=== PATIENT | female | born 1960 ===

== ENCOUNTER 2017-05-30 11:54 | Emergency (ER) | payer MEDICAID, MEDICARE, OTHER ==
[2017-05-30 11:55] VITALS: BMI 36.6
[2017-05-30 12:19] VITALS: TEMP 97.8
[2017-05-30] MEDS ORDERED: Albuterol-Ipratrop 3 mg / 0.5 (3 ml) UD IH STA (12:34)
--- NOTE | 2017-05-30 12:47 | ED PDOC ---
Arrival/HPI - General Chief Complaint: Cough, Cold, Congestion Time Seen by Provider: 05/30/17 12:18 Historian: Patient - History of Present Illness Narrative History of Present Illness (Text): 05/30/17 12:48 A 57 year old female, whose past medical history includes asthma, presents to the emergency department complaining of sinus congestion for the past 4 days. Patient has been taking nebulizer and allergy medications, with no relief. Patient reports she was traveling to [place], returned back home two days ago. Contrary to triage, patient denies pain with deep breaths. Reports chest tightness similar to her asthma exacerbating symptoms, a productive cough and sore throat but denies any fever, leg swelling or any other complaints at this time. Denies smoking. PMD: Dr. Chavira Symptom Onset: Sudden Symptom Course: Unchanged Activities at Onset: Rest Context: Home Past Medical History - Provider Review Nursing Documentation Reviewed: Yes - Infectious Disease Hx of Infectious Diseases: None - Tetanus Immunization Tetanus Immunization: Unknown - Reproductive Menopause: Yes - Cardiac Hx Cardiac Disorders: No - Pulmonary Hx Respiratory Disorders: Yes Hx Asthma: Yes - Neurological Hx Neurological Disorder: No - HEENT Hx HEENT Disorder: No - Renal Hx Renal Disorder: No - Endocrine/Metabolic Hx Endocrine Disorders: No - Hematological/Oncological Hx Blood Disorders: No - Integumentary Hx Dermatological Disorder: No - Musculoskeletal/Rheumatological Hx Musculoskeletal Disorders: Yes Hx Osteoporosis: Yes Hx Rheumatoid Arthritis: Yes - Gastrointestinal Hx Gastrointestinal Disorders: Yes Hx Gastroesophageal Reflux: Yes - Genitourinary/Gynecological Hx Genitourinary Disorders: No - Psychiatric Hx Psychophysiologic Disorder: No Hx Substance Use: No - Surgical History Hx Section: Yes (x3) Hx Cholecystectomy: Yes Other/Comment: b/ knee r/p. toe sx - Anesthesia Hx Anesthesia: Yes Hx Anesthesia Reactions: Yes (too much nausea) Hx Malignant Hyperthermia: No - Suicidal Assessment Feels Threatened In Home Enviroment: No Family/Social History - Physician Review Nursing Documentation Reviewed: Yes Family/Social History: No Known Family HX Smoking Status: Former Smoker Hx Alcohol Use: No Hx Substance Use: No Allergies/Home Meds Allergies/Adverse Reactions: Allergies codeine Allergy (Verified 05/30/17 12:09) ANAPHYLAXIS iodine Allergy (Verified 05/30/17 12:09) ANGIOEDEMA oxycodone HCl [From Percocet] Allergy (Verified 05/30/17 12:09) NAUSEA shellfish derived Allergy (Verified 05/30/17 12:09) ANAPHYLAXIS Home Medications: Home Meds Medication Instructions Recorded Confirmed Albuterol HFA [Ventolin HFA 90 2 puff IH PRN PRN 05/30/17 05/30/17 mcg/actuation (8 g)] Gabapentin [Neurontin] 100 mg PO DAILY 05/30/17 05/30/17 Gabapentin [Neurontin] 200 mg PO HS 05/30/17 05/30/17 Review of Systems - Physician Review All systems were reviewed & negative as marked: Yes - Review of Systems Constitutional: absent: Fevers ENT: Sore Throat, Sinus Congestion Respiratory: Cough Cardiovascular: Other (chest tightness). absent: Chest Pain Musculoskeletal: absent: Other (leg swelling) Physical Exam - Physical Exam Narrative Physical Exam (Text): 05/30/17 12:46 Head: Atraumatic. Normocephalic. Eyes: PERRL. EOMI. Conjunctivae are not pale. ENT: Mucous membranes are moist and intact. Oropharynx is clear and symmetric. Neck: Supple. Full ROM. No JVD. No lymphadenopathy. Cardiovascular: Regular rate. Regular rhythm. No murmurs, rubs, or gallops. Distal pulses are 2+ and symmetric. Pulmonary/Chest: Mild expiratory wheezing Abdominal: Soft and non-distended. There is no tenderness. No rebound, guarding, or rigidity. No organomegaly. Good bowel sounds. Back: No CVA tenderness. Extremities: No edema. No cyanosis. No clubbing. Full range of motion in all extremities. No calf tenderness. Skin: Skin is warm and dry. No petechiae. No purpura. Neurological: Alert, awake, and oriented to person, place, time, and situation. Normal speech. Psychiatric: Good eye contact. Normal interaction, affect, and behavior. Vital Signs Reviewed: Yes Vital Signs Temp Pulse Resp BP Pulse Ox 05/30/17 15:02 82 18 125/80 98 05/30/17 12:08 97.8 F 86 20 123/75 97 Temperature: Afebrile Blood Pressure: Normal Pulse: Regular Respiratory Rate: Normal Appearance: Positive for: Well-Appearing, Non-Toxic, Comfortable Pain Distress: None Mental Status: Positive for: Alert and Oriented X 3 Medical Decision Making ED Course and Treatment: 05/30/17 12:45 Impression: A 57 year old female with sinus congestion. Differential Diagnosis included but are not limited to: sinusitis vs. allergic rhinitis vs. asthma exacerbation vs. pneumonia Plan: -- EKG -- chest xray -- labs -- Duoneb, Solumedrol -- Reassess and disposition Prior Visits: Notes and results from previous visits were reviewed. Patient was last seen in the emergency department on 11/06/16 for evaluation of chest pain and right upper quadrant pain. Chest CT was negative for Pulmonary embolism. Progress Notes: 05/30/17 14:30 On reexamination, patient has no wheezing, no chest pain, no hypoxia. EKG reveals normal sinus rhythm with right bundle branch block, noted on EKG in October at [facility]. Will discharge patient with prednisone and antibiotics for possible sinusitis and mild asthma exacerbation. 05/30/17 14:59 chest xray: Creator : Stanley Caba MD IMPRESSION: No active disease. - Lab Interpretations Lab Results: 05/30/17 13:26 05/30/17 13:26 Lab Results 05/30/17 13:26: Sodium 142, Potassium 3.8, Chloride 103, Carbon Dioxide 28, Anion Gap 15, BUN 13, Creatinine 0.7, Est GFR ( Amer) > 60, Est GFR (Non- Af Amer) > 60, Random Glucose 96, Calcium 9.1, Total Bilirubin 0.3, AST 25, ALT 27, Alkaline Phosphatase 74, Lactate Dehydrogenase 499, Total Creatine Kinase 117, Troponin I < 0.01, Total Protein 6.8, Albumin 4.2, Globulin 2.6, Albumin/ Globulin Ratio 1.6 05/30/17 13:26: PT 10.7, INR 0.99, APTT 27.1 05/30/17 13:26: WBC 5.4, RBC 4.54, Hgb 13.0, Hct 39.6, MCV 87.2, MCH 28.6, MCHC 32.8, RDW 13.3, Plt Count 259, MPV 10.3, Gran % 55.1, Lymph % (Auto) 32.7, [place] % (Auto) 8.3 H, Eos % (Auto) 3.3, Baso % (Auto) 0.6, Gran # 3.00, Lymph # 1.8, [place] # 0.5, Eos # 0.2, Baso # 0.03 I have reviewed the lab results: Yes - RAD Interpretation Radiology Orders: 05/30/17 12:33 CHEST TWO VIEWS (PA/LAT) [RAD] Stat - EKG Interpretation Interpreted by ED Physician: Yes Type: 12 lead EKG - Medication Orders Current Medication Orders: Discontinued Medications Albuterol/Ipratropium (Duoneb 3 Mg/0.5 Mg (3 Ml) Ud) 3 ml IH STAT STA Stop: 05/30/17 12:35 Last Admin: 05/30/17 13:12 Dose: 3 ml Methylprednisolone (Solu-Medrol) 125 mg IVP STAT STA Stop: 05/30/17 12:35 Last Admin: 05/30/17 13:12 Dose: 125 mg - Scribe Statement The provider has reviewed the documentation as recorded by the Taiwo Davis Provider Scribe Attestation: All medical record entries made by the Scribe were at my direction and personally dictated by me. I have reviewed the chart and agree that the record accurately reflects my personal performance of the history, physical exam, medical decision making, and the department course for this patient. I have also personally directed, reviewed, and agree with the discharge instructions and disposition. Disposition/Present on Arrival - Present on Arrival History of DVT/PE: Yes History of Uncontrolled Diabetes: No Urinary Catheter: No History of Decub. Ulcer: No History Surgical Site Infection Following: None - Disposition Diagnosis: Sinusitis, Asthma exacerbation Disposition: HOME/ ROUTINE Condition: GOOD Discharge Instructions (ExitCare): Asthma (ED), Sinusitis (ED), Allergies (ED) Additional Instructions: For any fevers, any facial swelling, any headaches, any chest pain or shortness of breath, any pain with deep breaths, any leg or swelling, any coughing/ spitting blood, any persistent or worsening of symptoms, get rechecked. Follow-up with your primary care doctor in 1-2 days. Prescriptions: predniSONE [Prednisone] 60 mg PO DAILY #15 tab Azithromycin [Zithromax] 250 mg PO DAILY #6 tab Referrals: Brendan Chavira MD [Primary Care Provider] - Follow up with primary Forms: [employer] (Ukrainian)
[2017-05-30 13:35] LABS: BASO # 0.03 K/mm3 (0.0-2.0); BASO % 0.6 % (0.0-3.0); EOS # 0.2 (0.0-0.7); EOS % 3.3 % (1.5-5.0); GRAN % 55.1 % (50.0-68.0); LYMPH # 1.8 (1.2-3.4); LYMPH % 32.7 % (22.0-35.0); MEAN CELL VOLUME 87.2 fl (80.0-105.0); MEAN CORPUSCULAR HEMOGLOBIN 28.6 pg (25.0-35.0); MEAN CORPUSCULAR HGB CONC 32.8 g/dl (31.0-37.0); MEAN PLATELET VOLUME 10.3 fl (7.0-11.0); MONO # 0.5 (0.1-0.6); MONO % 8.3 % (1.0-6.0); PLATELET COUNT 259 10^3/uL (120.0-450.0); RBC 4.54 10^6/uL (3.5-6.1); RED CELL DISTRIBUTION WIDTH 13.3 % (11.5-14.5); WHITE BLOOD COUNT 5.4 10^3/ul (4.5-11.0)
[2017-05-30 13:40] LABS: ALB/GLOB RATIO 1.6 (1.1-1.8); ALBUMIN 4.2 g/dL (3.0-4.8); ALT/SGPT 27 U/L (7-56); AST/SGOT 25 U/L (15-39); BLOOD UREA NITROGEN 13 mg/dL (7-21); CALCIUM 9.1 mg/dL (8.4-10.5); GFR AFRICAN-AMERICAN > 60; GFR NON-AFRICAN AMERICAN > 60
[2017-05-30 13:41] LABS: INR 0.99 (0.93-1.08); PARTIAL THROMBOPLASTIN TIME 27.1 Seconds (23.7-30.8); PROTHROMBIN TIME 10.7 Seconds (9.9-11.8)
[2017-05-30 13:53] LABS: TROPONIN I < 0.01 ng/mL
--- NOTE | 2017-05-30 14:57 | RAD ---
HISTORY: cough, productive sputum COMPARISON: No prior. TECHNIQUE: Chest PA and lateral FINDINGS: LUNGS: No active pulmonary disease. PLEURA: No significant pleural effusion identified. No pneumothorax apparent. CARDIOVASCULAR: Normal. OSSEOUS STRUCTURES: No significant abnormalities. VISUALIZED UPPER ABDOMEN: Normal. OTHER FINDINGS: None. IMPRESSION: No active disease.
[2017-05-30 15:04] VITALS: BP 125/80; PULSE 82; RESP 18; O2SAT 98
--- NOTE | 2017-05-30 23:29 | CARD ---
APPROVED REPORT EKG Measurement Heart [id number] <Conclusion> Normal sinus rhythm Right bundle branch block Voltage criteria for left ventricular hypertrophy Abnormal ECG
== END 2017-05-30 15:04 | disposition home or self-care (01) ==
LOC: ED 11:54
DX: J45.901 Unspecified asthma with (acute) exacerbation (principal); J32.9 Chronic sinusitis, unspecified; Z87.891 Personal history of nicotine dependence
CPT/HCPCS: 71020; 80053; 82550; 83615; 84484; 85025; 85610; 85730; 93005; 94150; 94640; 96374; 99285; J2930

== ENCOUNTER 2017-07-28 11:30 | Emergency (ER) | payer MEDICARE ==
[2017-07-28 11:30] VITALS: BMI 37.8
[2017-07-28 11:35] VITALS: TEMP 97.7
[2017-07-28] MEDS ORDERED: Levalbuterol 1.25 MG/3 ML Inhal Soln UD IH STA ×2 (11:41→11:50)
[2017-07-28] MEDS ORDERED: Ipratropium 0.02% Inhal Soln (0.5 mg/2.5 ml) UD IH STA ×2 (11:41→11:50)
[2017-07-28] MEDS ORDERED: Sodium Chloride 0.9% 1,000 ML IV SCH (11:45)
--- NOTE | 2017-07-28 11:46 | ED PDOC ---
Arrival/HPI - General Chief Complaint: Shortness Of Breath Time Seen by Provider: 07/28/17 11:32 Historian: Patient - History of Present Illness Narrative History of Present Illness (Text): 07/28/17 11:44 57 y/o female, pmh including osteoporosis/asthma/PE?, allergic to narcotics and shellfish, c/o coughing and wheezing x 1 week. Pt. stated that she has chronic history of asthma, started with coughing and wheezing last week, no fever or chills, no recent traveling, no night sweat, no numbness or tingling, no night sweat, no other medical or psychological complaints. Past Medical History - Provider Review Nursing Documentation Reviewed: Yes - Infectious Disease Hx of Infectious Diseases: None - Tetanus Immunization Tetanus Immunization: Unknown - Cardiac Hx Cardiac Disorders: No - Pulmonary Hx Respiratory Disorders: Yes Hx Asthma: Yes Hx Tuberculosis: Yes - Neurological Hx Neurological Disorder: No - HEENT Hx HEENT Disorder: No - Renal Hx Renal Disorder: No - Endocrine/Metabolic Hx Endocrine Disorders: No - Hematological/Oncological Hx Blood Disorders: No - Integumentary Hx Dermatological Disorder: No - Musculoskeletal/Rheumatological Hx Musculoskeletal Disorders: Yes (FIBROMYALGIA) Hx Arthritis: Yes - Gastrointestinal Hx Gastrointestinal Disorders: Yes (APPLICATION AND REMOVAL OF LAP BAND) - Genitourinary/Gynecological Hx Genitourinary Disorders: No - Psychiatric Hx Psychophysiologic Disorder: No Hx Substance Use: No - Surgical History Hx Cholecystectomy: Yes Hx Orthopedic Surgery: Yes (SARAH KNEE REPLACEMENT) Other/Comment: SARAH FEET TOE SX, BUNIONECTOMY - Anesthesia Hx Anesthesia: Yes Hx Anesthesia Reactions: No (NEEDS ANTIEMETIC PRIOR TO ANESTHESIA) Hx Malignant Hyperthermia: No - Suicidal Assessment Feels Threatened In Home Enviroment: No Family/Social History - Physician Review Nursing Documentation Reviewed: Yes Family/Social History: Unknown Family HX Smoking Status: Former Smoker Hx Alcohol Use: No Hx Substance Use: No Allergies/Home Meds Allergies/Adverse Reactions: Allergies codeine Allergy (Verified 07/28/17 11:35) ANAPHYLAXIS iodine Allergy (Verified 07/28/17 11:35) ANGIOEDEMA oxycodone HCl [From Percocet] Allergy (Verified 07/28/17 11:35) NAUSEA shellfish derived Allergy (Verified 07/28/17 11:35) ANAPHYLAXIS Home Medications: Home Meds Medication Instructions Recorded Confirmed Gabapentin [Neurontin] 300 mg PO TID 05/30/17 07/28/17 Alendronate [Fosamax] 1 tab PO DAILY 07/09/17 07/28/17 Mometasone/Formoterol [Dulera 200 1 puff INH DAILY 07/09/17 07/28/17 Mcg/5 Mcg Inhaler] Metronidazole [Flagyl] 500 mg PO BID 07/28/17 07/28/17 Pantoprazole Sodium [Protonix] 40 mg PO DAILY 07/28/17 07/28/17 Review of Systems - Review of Systems Constitutional: absent: Fatigue, Fevers Eyes: absent: Vision Changes ENT: absent: Hearing Changes Respiratory: Cough, Sputum, Wheezing. absent: SOB Cardiovascular: absent: Chest Pain Gastrointestinal: absent: Abdominal Pain, Nausea, Vomiting Skin: absent: Rash, Pruritis Neurological: absent: Headache, Dizziness Physical Exam Vital Signs Reviewed: Yes Vital Signs Temp Pulse Resp BP Pulse Ox 07/28/17 13:35 98 H 22 120/63 98 07/28/17 12:10 80 20 116/67 98 07/28/17 12:09 28 H 100 07/28/17 11:34 97.7 F 101 H 22 132/81 100 Temperature: Afebrile Blood Pressure: Normal Pulse: Tachycardic Respiratory Rate: Normal Appearance: Positive for: Well-Appearing, Non-Toxic Pain Distress: None Mental Status: Positive for: Alert and Oriented X 3 - Systems Exam Head: Present: Atraumatic, Normocephalic Pupils: Present: PERRL Extroacular Muscles: Present: EOMI Conjunctiva: Present: Normal Mouth: Present: Moist Mucous Membranes Neck: Present: Normal Range of Motion Respiratory/Chest: Present: Clear to Auscultation, Good Air Exchange, Wheezes ( Bilateral mid to lower lobes. ), Decreased Breath Sounds (Bilateral mid to lower lobes. ), Tachypneic. No: Respiratory Distress, Accessory Muscle Use, Rales, Retracting, Rhonchi, Tender to Palpation Cardiovascular: Present: Regular Rate and Rhythm, Normal S1, S2, Other (1+ pedal edema bilaterally noted. ). No: Murmurs Abdomen: Present: Normal Bowel Sounds. No: Tenderness, Distention, Peritoneal Signs Back: Present: Normal Inspection Upper Extremity: Present: Normal Inspection. No: Cyanosis, Edema Lower Extremity: Present: Normal Inspection. No: Edema Neurological: Present: GCS=15, Speech Normal, Motor Func Grossly Intact, Gait Normal, Memory Normal Skin: Present: Warm, Dry, Normal Color. No: Rashes Psychiatric: Present: Alert, Oriented x 3, Normal Insight, Normal Concentration Medical Decision Making ED Course and Treatment: 07/28/17 11:46 -labs/bnp -chest xray -IV solumedrol/xopenex with ipratropium/IVF NS @ 100cc/hr -Observe and reassess 07/28/17 13:17 -Chest xray show no active disease -After the 1st xopenex and ipratropium treatment, there is increase in breath sound and decrease in wheezing, will continue the 2nd treatment. -Labs are non-significant except d-dimer 0.53,CTA ordered. Pt. stated that she is clostrophobic, 1mg IV ativan ordered and will be given prior to the CTA. -Pt. has shellfish allergy but she had the IV contrast before with no complication, received the IV steroid already, will prophylatically give 25mg IV benadryl. 07/28/17 14:54 -CTA show no PE. -Bilateral lung with clear entry, wheezing mostly resolved, pt. feels much better. -Discharge home with zithromycin, prednisone, albuterol MDI, zyrtec, stay hydrated, follow up with your own pmd and plant culture manager within 2 days, return to the ER for any new or worsening signs or symptoms. - Lab Interpretations Lab Results: 07/28/17 11:48 07/28/17 11:48 Lab Results 07/28/17 11:48: D-Dimer, Quantitative 0.53 H 07/28/17 11:48: WBC 5.5, RBC 4.54, Hgb 12.7, Hct 39.6, MCV 87.2, MCH 28.0, MCHC 32.1, RDW 13.7, Plt Count 262, MPV 10.0, Gran % 62.8, Lymph % (Auto) 24.9, [place] % (Auto) 6.8 H, Eos % (Auto) 5.1 H, Baso % (Auto) 0.4, Gran # 3.44, Lymph # 1.4 , [place] # 0.4, Eos # 0.3, Baso # 0.02 07/28/17 11:48: Sodium 141, Potassium 3.8, Chloride 105, Carbon Dioxide 26, Anion Gap 14, BUN 14, Creatinine 0.7, Est GFR ( Amer) > 60, Est GFR (Non- Af Amer) > 60, Random Glucose 192 H, Calcium 9.0, Total Bilirubin 0.4, AST 25, ALT 30, Alkaline Phosphatase 74, NT-Pro-B Natriuret Pep 72.8, Total Protein 6.9 , Albumin 4.1, Globulin 2.8, Albumin/Globulin Ratio 1.5 I have reviewed the lab results: Yes Interpretation: Abnormal lab values (d-dimer 0.53) - RAD Interpretation Radiology Orders: 07/28/17 11:41 CHEST PORTABLE [RAD] Stat 07/28/17 13:13 ANGIO CHEST PE PROTOCOL [CT] Stat Chest x-ray: HISTORY: medical clearance COMPARISON: 05/30/2017 FINDINGS: LUNGS: The lungs are well inflated and clear. PLEURA: No significant pleural effusion identified, no pneumothorax apparent. CARDIOVASCULAR: Normal. OSSEOUS STRUCTURES: No significant abnormalities. VISUALIZED UPPER ABDOMEN: Normal. OTHER FINDINGS: None. IMPRESSION: No active pulmonary disease. ------ CTA: PROCEDURE: CT Chest with contrast (Pulmonary Angiogram) HISTORY: cough and wheezing, elevated d-dimer COMPARISON: Chest radiographs performed the same day. TECHNIQUE: Axial computed tomography images were obtained of the chest in the pulmonary arterial phase of enhancement. Coronal and sagittal reformatted images were created and reviewed. Intravenous contrast dose: Radiation dose: Total exam DLP = 692.57 mGy-cm. This CT exam was performed using one or more of the following dose reduction techniques: Automated exposure control, adjustment of the mA and/or kV according to patient size, and/or use of iterative reconstruction technique. FINDINGS: PULMONARY ARTERIES: There are no filling defects in the pulmonary arteries to suggest acute pulmonary embolism. AORTA: No thoracic aortic aneurysm. LUNGS: The lungs are clear. No nodule, mass or pulmonary consolidation. PLEURAL SPACES: No effusion or pneuomothorax. HEART: The heart is normal in size. No significant pericardial effusion. LYMPH NODES: No pathologic lymphadenopathy. BONES, CHEST WALL: There is multilevel degenerative disc disease. No fracture or destructive lesion OTHER FINDINGS: None IMPRESSION: No evidence of acute pulmonary embolism. Clear lungs. Flower Cheniller: Radiologist - Medication Orders Current Medication Orders: Sodium Chloride (Sodium Chloride 0.9%) 1,000 mls @ 100 mls/hr IV .Q10H [place] Last Admin: 07/28/17 11:47 Dose: 100 mls/hr eMAR Start Stop Document 07/28/17 11:47 [place] (Rec: 07/28/17 11:47 [id number] Intravenous Solution Start Date 07/28/17 Start Time 11:47 Discontinued Medications Diphenhydramine HCl (Benadryl) 25 mg IVP STAT STA Stop: 07/28/17 13:14 Last Admin: 07/28/17 13:40 Dose: 25 mg IVP Administration Document 07/28/17 13:40 [place] (Rec: 07/28/17 13:40 [id number]) Charges for Administration # of IVP Administrations 1 Ipratropium [place] (Atrovent) 0.5 mg IH STAT STA Stop: 07/28/17 11:42 Last Admin: 07/28/17 11:47 Dose: 0.5 mg Ipratropium [place] (Atrovent) 0.5 mg IH STAT STA Stop: 07/28/17 11:51 Last Admin: 07/28/17 12:29 Dose: 0.5 mg Levalbuterol HCl (Xopenex) 1.25 mg IH STAT STA Stop: 07/28/17 11:42 Last Admin: 07/28/17 11:53 Dose: 1.25 mg Levalbuterol HCl (Xopenex) 1.25 mg IH STAT STA Stop: 07/28/17 11:51 Last Admin: 07/28/17 12:29 Dose: 1.25 mg Lorazepam (Ativan) 1 mg IVP ONCE ONE PRN Reason: Protocol Stop: 07/28/17 13:14 Last Admin: 07/28/17 13:41 Dose: 1 mg IVP Administration Document 07/28/17 13:41 [place] (Rec: 07/28/17 13:41 [id number]) Charges for Administration # of IVP Administrations 1 Methylprednisolone (Solu-Medrol) 125 mg IVP STAT STA Stop: 07/28/17 11:42 Last Admin: 07/28/17 11:47 Dose: 125 mg IVP Administration Document 07/28/17 11:47 [place] (Rec: 07/28/17 11:47 [id number] Charges for Administration # of IVP Administrations 1 - PA / BUMBOATER / Resident Statement MD/DO has reviewed & agrees with the documentation as recorded. MD/DO has examined the patient and agrees with the treatment plan. Disposition/Present on Arrival - Present on Arrival Any Indicators Present on Arrival: No History of DVT/PE: Yes History of Uncontrolled Diabetes: No Urinary Catheter: No History of Decub. Ulcer: No History Surgical Site Infection Following: None - Disposition Have Diagnosis and Disposition been Completed?: Yes Diagnosis: Asthma, Bronchitis Disposition: HOME/ ROUTINE Disposition Time: 14:54 Patient Plan: Discharge Patient Problems: Current Active Problems Problem Status Onset Asthma Acute Condition: IMPROVED Additional Instructions: -Discharge home with zithromycin, prednisone, albuterol MDI, zyrtec, stay hydrated, follow up with your own pmd and plant culture manager within 2 days, return to the ER for any new or worsening signs or symptoms. Prescriptions: Albuterol HFA [Ventolin HFA 90 mcg/actuation (8 g)] 2 puff IH [id number] PRN #1 unit PRN Reason: Other Azithromycin [Z-John] 250 mg PO DAILY #6 tab Cetirizine HCl [Zyrtec Allergy] 10 mg PO DAILY #14 sgl Prednisone 50 mg PO DAILY #5 tablet Referrals: PCP,NO [Primary Care Provider] - Follow up with primary [facility] [place] - Follow up with primary Forms: [employer] (French), WORK NOTE
[2017-07-28 11:58] LABS: BASO # 0.02 K/mm3 (0.0-2.0); BASO % 0.4 % (0.0-3.0); EOS # 0.3 (0.0-0.7); EOS % 5.1 % (1.5-5.0); GRAN # 3.44 (1.4-6.5); GRAN % 62.8 % (50.0-68.0); HEMATOCRIT 39.6 % (36.0-48.0); LYMPH # 1.4 (1.2-3.4); LYMPH % 24.9 % (22.0-35.0); MEAN CELL VOLUME 87.2 fl (80.0-105.0); MEAN CORPUSCULAR HGB CONC 32.1 g/dl (31.0-37.0); MONO # 0.4 (0.1-0.6); MONO % 6.8 % (1.0-6.0); RED CELL DISTRIBUTION WIDTH 13.7 % (11.5-14.5); WHITE BLOOD COUNT 5.5 10^3/ul (4.5-11.0)
[2017-07-28 12:08] LABS: ALB/GLOB RATIO 1.5 (1.1-1.8); ALKALINE PHOSPHATASE 74 U/L (38-126); ALT/SGPT 30 U/L (7-56); AST/SGOT 25 U/L (14-36); BILIRUBIN,TOTAL 0.4 mg/dL (0.2-1.3); BLOOD UREA NITROGEN 14 mg/dL (7-21); CARBON DIOXIDE 26 mmol/L (21-33); CHLORIDE 105 mmol/L (98-107); GFR AFRICAN-AMERICAN > 60; GLUCOSE,RANDOM 192 mg/dL (70-110); POTASSIUM 3.8 mmol/L (3.6-5.0); SODIUM 141 mmol/L (132-148); TOTAL PROTEIN 6.9 g/dL (5.8-8.3)
--- NOTE | 2017-07-28 12:16 | RAD ---
HISTORY: medical clearance COMPARISON: 05/30/2017 FINDINGS: LUNGS: The lungs are well inflated and clear. PLEURA: No significant pleural effusion identified, no pneumothorax apparent. CARDIOVASCULAR: Normal. OSSEOUS STRUCTURES: No significant abnormalities. VISUALIZED UPPER ABDOMEN: Normal. OTHER FINDINGS: None. IMPRESSION: No active pulmonary disease.
[2017-07-28] MEDS ORDERED: DiphenhydrAMINE 50 mg/ml Inj IVP STA (13:13)
[2017-07-28 13:36] VITALS: O2SAT 98
--- NOTE | 2017-07-28 14:50 | CT ---
PROCEDURE: CT Chest with contrast (Pulmonary Angiogram) HISTORY: cough and wheezing, elevated d-dimer COMPARISON: Chest radiographs performed the same day. TECHNIQUE: Axial computed tomography images were obtained of the chest in the pulmonary arterial phase of enhancement. Coronal and sagittal reformatted images were created and reviewed. Intravenous contrast dose: Radiation dose: Total exam DLP = 692.57 mGy-cm. This CT exam was performed using one or more of the following dose reduction techniques: Automated exposure control, adjustment of the mA and/or kV according to patient size, and/or use of iterative reconstruction technique. FINDINGS: PULMONARY ARTERIES: There are no filling defects in the pulmonary arteries to suggest acute pulmonary embolism. AORTA: No thoracic aortic aneurysm. LUNGS: The lungs are clear. No nodule, mass or pulmonary consolidation. PLEURAL SPACES: No effusion or pneuomothorax. HEART: The heart is normal in size. No significant pericardial effusion. LYMPH NODES: No pathologic lymphadenopathy. BONES, CHEST WALL: There is multilevel degenerative disc disease. No fracture or destructive lesion OTHER FINDINGS: None IMPRESSION: No evidence of acute pulmonary embolism. Clear lungs.
[2017-07-28 14:57] VITALS: BP 127/68; PULSE 92; RESP 18
== END 2017-07-28 15:15 | disposition home or self-care (01) ==
LOC: ED 11:30
DX: J45.909 Unspecified asthma, uncomplicated (principal); Z86.11 Personal history of tuberculosis; Z87.891 Personal history of nicotine dependence
CPT/HCPCS: 71010; 71275; 80053; 83880; 85025; 85378; 96374; 96375; 99284; J1200; J2060; J2930; J7040; Q9967

== ENCOUNTER 2018-11-26 11:58 | Observation (INO) | payer MEDICARE, OTHER ==
[2018-11-26 12:04] VITALS: BMI 44.6
--- NOTE | 2018-11-26 12:10 | ED PDOC ---
Arrival/HPI - General Time Seen by Provider: 11/26/18 12:00 Historian: Patient - History of Present Illness Narrative History of Present Illness (Text): 11/26/18 12:09 58 year old female, whose past medical history includes Asthma, tuberculosis, GERD, cholecystectomy, gastric bypass, and joint replacement (LT TKR 2007; RT TKR 2008), who presents to the emergency department complaining of asthmatic symptoms for the past day. Patient notes she is experiencing shortness of breath and chest tightness that feel similar to her asthma. She described the chest tightness as a 6/10. Patient states she has been using her nebulizer treatments and pumps with no relief. She notes associated wheezing, chills, abdominal pain, and scratchy throat. Patient denies fevers, headache, dizziness, nausea, vomiting, diarrhea, back pain, neck pain, or any other complaint. PMD: Dr. Rizvi Time/Duration: 24 hours Symptom Onset: Gradual Symptom Course: Unchanged Quality: Tightness Activities at Onset: Light Context: Home Past Medical History - Provider Review Nursing Documentation Reviewed: Yes - Infectious Disease Hx of Infectious Diseases: None - Tetanus Immunization Tetanus Immunization: Unknown - Cardiac Hx Cardiac Disorders: No - Pulmonary Hx Respiratory Disorders: Yes Hx Asthma: Yes Hx Tuberculosis: Yes - Neurological Hx Neurological Disorder: Yes - HEENT Hx HEENT Disorder: No - Renal Hx Renal Disorder: No - Endocrine/Metabolic Hx Endocrine Disorders: No - Hematological/Oncological Hx Blood Disorders: No - Integumentary Hx Dermatological Disorder: No - Musculoskeletal/Rheumatological Hx Falls: No - Gastrointestinal Hx Gastrointestinal Disorders: Yes Hx Gastroesophageal Reflux: Yes - Genitourinary/Gynecological Hx Genitourinary Disorders: No - Psychiatric Hx Psychophysiologic Disorder: No Hx Substance Use: No - Surgical History Hx Cholecystectomy: Yes Hx Gastric Bypass Surgery: Yes (lap band 5 yrs ago) Hx Joint Replacement: Yes (LT TKR 2007; RT TKR 2008) Hx Musculoskeletal Surgery: Yes (LAMINECTOMY 06/2014) Hx Orthopedic Surgery: Yes Other/Comment: SARAH FEET TOE SX, BUNIONECTOMY - Anesthesia Hx Anesthesia: Yes Hx Anesthesia Reactions: No Hx Malignant Hyperthermia: No - Suicidal Assessment Feels Threatened In Home Enviroment: No Family/Social History - Physician Review Nursing Documentation Reviewed: Yes Family/Social History: No Known Family HX Smoking Status: Former Smoker Hx Alcohol Use: No Hx Substance Use: No Allergies/Home Meds Allergies/Adverse Reactions: Allergies codeine Allergy (Verified 07/28/17 11:35) ANAPHYLAXIS iodine Allergy (Verified 07/28/17 11:35) ANGIOEDEMA oxycodone HCl [From Percocet] Allergy (Verified 07/28/17 11:35) NAUSEA shellfish derived Allergy (Verified 07/28/17 11:35) ANAPHYLAXIS Home Medications: Home Meds Medication Instructions Recorded Confirmed RX: Gabapentin [Neurontin] 300 mg PO TID 05/30/17 11/28/17 Mometasone/Formoterol [Dulera 200 1 puff INH DAILY 07/09/17 11/28/17 Mcg/5 Mcg Inhaler] RX: Alendronate [Fosamax] 1 tab PO DAILY 07/09/17 11/20/17 Pantoprazole Sodium [Protonix] 40 mg PO DAILY 07/28/17 11/28/17 Review of Systems - Review of Systems Constitutional: absent: Fevers Eyes: absent: Vision Changes ENT: Sore Throat Respiratory: SOB, Wheezing. absent: Cough Cardiovascular: Chest Pain (tightness) Gastrointestinal: absent: Abdominal Pain, Constipation, Diarrhea, Nausea, Vomiting Genitourinary Female: absent: Dysuria, Frequency Musculoskeletal: absent: Back Pain, Neck Pain Skin: absent: Rash Neurological: absent: Headache, Dizziness Physical Exam Vital Signs Reviewed: Yes Temperature: Afebrile Blood Pressure: Hypertensive Pulse: Tachycardic Respiratory Rate: Tachypneic Appearance: Positive for: Well-Appearing, Non-Toxic, Comfortable Pain Distress: None Mental Status: Positive for: Alert and Oriented X 3 - Systems Exam Head: Present: Atraumatic, Normocephalic Pupils: Present: PERRL Extroacular Muscles: Present: EOMI Conjunctiva: Present: Normal Mouth: Present: Moist Mucous Membranes Pharnyx: Present: ERYTHEMA. No: EXUDATE, TONSILS ENLARGED, Peritonsilar Swelling Neck: Present: Normal Range of Motion Respiratory/Chest: Present: Wheezes, Decreased Breath Sounds. No: Respiratory Distress, Accessory Muscle Use Cardiovascular: Present: Regular Rate and Rhythm, Normal S1, S2. No: Murmurs Abdomen: No: Tenderness, Distention, Peritoneal Signs Back: Present: Normal Inspection Upper Extremity: Present: Normal Inspection. No: Cyanosis, Edema Lower Extremity: Present: Normal Inspection. No: Edema Neurological: Present: GCS=15, CN II-XII Intact, Speech Normal Skin: Present: Warm, Dry, Normal Color. No: Rashes Lymphatic: No: Cervical Adenopathy, Axillary Adenopathy, Inguinal Adenopathy Psychiatric: Present: Alert, Oriented x 3, Normal Insight, Normal Concentration Medical Decision Making ED Course and Treatment: 11/26/18 12:09 Impression: 58 year old female who presents to the emergency department complaining of asthmatic symptoms. Plan: -- EKG -- Chest X-ray -- Albuterol -- Duoneb -- Peak flow -- Reassess and disposition Prior Visits: Notes and results from previous visits were reviewed. Progress Notes: 11/26/18 12:52 EKG shows NSR at 80bpm with RBBB and LVH, unchanged from prior on 07/0711/26/18 12:56 Chest X-ray reviewed by radiologist, shows: IMPRESSION: No active pulmonary disease. 11/26/18 14:09 Peak flow 230 to 370 after duonebs, albuterol and steroids. Tachypneic after ambulating around with persistent wheezing. She reports no improvement of symptoms. Accepted by dr. rizvi - EKG Interpretation Interpreted by ED Physician: Yes Type: 12 lead EKG - Scribe Statement The provider has reviewed the documentation as recorded by the Taiwo Jeter Provider Scribe Attestation: All medical record entries made by the Scribe were at my direction and personally dictated by me. I have reviewed the chart and agree that the record accurately reflects my personal performance of the history, physical exam, medical decision making, and the department course for this patient. I have also personally directed, reviewed, and agree with the discharge instructions and disposition. Disposition/Present on Arrival - Present on Arrival Any Indicators Present on Arrival: No History of DVT/PE: No History of Uncontrolled Diabetes: No Urinary Catheter: No History Surgical Site Infection Following: None - Disposition Have Diagnosis and Disposition been Completed?: Yes Diagnosis: Asthma exacerbation Disposition: HOSPITALIZED Disposition Time: 14:18 Patient Plan: Observation Condition: FAIR
[2018-11-26] MEDS ORDERED: Albuterol 0.5% Inhal Sol (5 mg/ ml) 20 ml IH STA (12:29)
[2018-11-26] MEDS: Albuterol-Ipratrop 3 mg / 0.5 (3 ml) UD IH SCH ×4 (12:32→19:44)
--- NOTE | 2018-11-26 12:53 | RAD ---
Date of service: 11/26/2018 HISTORY: asthma, sob COMPARISON: 07/07/2018. FINDINGS: LUNGS: The lungs are well inflated and clear. PLEURA: No pleural effusions or pneumothorax. CARDIOVASCULAR: The heart is normal in size. No aortic atherosclerotic calcifications present. OSSEOUS STRUCTURES: Within normal limits for the patient's age. VISUALIZED UPPER ABDOMEN: Normal. OTHER FINDINGS: None. IMPRESSION: No active pulmonary disease.
[2018-11-26] MEDS ORDERED: Albuterol 0.083% Inhal Sol (2.5 mg/3 mL) UD ONE (13:34)
[2018-11-26] MEDS ORDERED: Albuterol-Ipratrop 3 mg / 0.5 (3 ml) UD IH STA ×2 (14:09→15:56)
[2018-11-26 15:01] LABS: BASO # 0.01 K/mm3 (0.0-2.0); BASO % 0.1 % (0.0-3.0); EOS # 0.1 (0.0-0.7); EOS % 0.8 % (1.5-5.0); HEMOGLOBIN 12.7 g/dL (12.0-16.0); LYMPH # 1.4 (1.2-3.4); LYMPH % 18.7 % (22.0-35.0); MEAN CELL VOLUME 87.1 fl (80.0-105.0); MEAN CORPUSCULAR HEMOGLOBIN 27.3 pg (25.0-35.0); MEAN CORPUSCULAR HGB CONC 31.3 g/dl (31.0-37.0); MEAN PLATELET VOLUME 10.7 fl (7.0-11.0); MONO # 0.3 (0.1-0.6); MONO % 3.7 % (1.0-6.0); RBC 4.66 10^6/uL (3.5-6.1); RED CELL DISTRIBUTION WIDTH 14.2 % (11.5-14.5); WHITE BLOOD COUNT 7.5 10^3/uL (4.5-11.0)
[2018-11-26 15:13] LABS: ALB/GLOB RATIO 1.4 (1.1-1.8); ALBUMIN 4.3 g/dL (3.0-4.8); BLOOD UREA NITROGEN 15 mg/dL (7-21); CALCIUM 9.2 mg/dL (8.4-10.5); GFR NON-AFRICAN AMERICAN > 60
[2018-11-26 15:18] LABS: ALT/SGPT 24 U/L (7-56); AST/SGOT 35 U/L (14-36)
[2018-11-26] MEDS ORDERED: Pantoprazole 40 mg EC Tab PO SCH (17:45)
[2018-11-26] MEDS: levoFLOXacin 500 mg in D5W 500 MG/100 ML BAG IVPB SCH (18:26)
--- NOTE | 2018-11-26 19:03 | CARD ---
APPROVED REPORT Date of service: 11/26/2018 EKG Measurement Heart [id number] <Conclusion> Normal sinus rhythm Right bundle branch block Voltage criteria for left ventricular hypertrophy Abnormal ECG
[2018-11-26] MEDS ORDERED: Albuterol-Ipratrop 3 mg / 0.5 (3 ml) UD IH SCH (19:30)
--- NOTE | 2018-11-26 20:49 | HP ---
DATE OF EXAM: 11/26/2018 HISTORY OF PRESENT ILLNESS: The patient is 58 years old, came to the emergency room because of increasing cough, congestion, shortness of breath, and chest tightness. She has been using her nebulizer more than usual with no significant relief. Denies any fever or chills. No history of nausea or vomiting. No diarrhea or fever at home. Because of increasing tightness and chest discomfort, she came to the ER for further evaluation. PAST MEDICAL HISTORY: Significant for; 1. Bronchial asthma. 2. History of tuberculosis in the remote past. 3. Gastroesophageal reflux disease. PAST SURGICAL HISTORY: Significant for; 1. Cholecystectomy. 2. History of gastric bypass. 3. Left total knee replacement in 2018 and right total knee replacement in 2008. ALLERGIES: SHE IS ALLERGIC TO CODEINE, IODINE, OXYCODONE, AND SHELL FISH. HOME MEDICATIONS: She is on Protonix 40 daily, Neurontin 300 mg 3 times a day, Fosamax 70 mg once a week, prednisone 40 mg daily, Dulera and albuterol. SOCIAL HISTORY: She used to be smoker in the past and socially drinks. PHYSICAL EXAMINATION: GENERAL: The patient is awake, alert, oriented and communicative. VITAL SIGNS: She is afebrile, pulse 102, respiration 17, and blood pressure 140/83. LUNGS: Bilateral expiratory rhonchi. HEART: S1 and S2 audible. ABDOMEN: Soft and nontender. No rebound, no guarding. NEUROLOGIC: The patient is awake, alert, oriented, and communicative. Able to move all extremities. EXTREMITIES: Bilateral leg, no edema. LABORATORY DATA: WBC 7.5, hemoglobin 12, hematocrit 40, and platelets 269. Chemistry; sodium 140, potassium 3.7, chloride 103, CO2 of 27, BUN 15, and creatinine 0.6. ASSESSMENT: 1. Asthma exacerbation. 2. History of gastric bypass. 3. Gastroesophageal reflux disease. PLAN: We will start the patient on IV steroids. Start on PPI. She is on gabapentin. We will continue that and start her on Levaquin nebulizer treatment. We will reevaluate the patient in a.m. Hilda Rizvi MD [facility] # [id number]
[2018-11-26] MEDS: Insulin Lispro (HUMAlog) HIGH Coverage SC SCH (21:29)
[2018-11-26] MEDS: MethylPREDNISolone 40 mg Vial IV SCH (21:35)
[2018-11-27] MEDS ORDERED: Apap-Butalbital-Caffeine 325-50-40mg Tab PO ONE (00:05)
[2018-11-27] MEDS: Albuterol-Ipratrop 3 mg / 0.5 (3 ml) UD IH PRN ×3 (01:25→07:49)
[2018-11-27] MEDS: Albuterol-Ipratrop 3 mg / 0.5 (3 ml) UD IH SCH ×2 (01:47→07:18)
--- NOTE | 2018-11-27 02:02 | CP.PCM.PN ---
Subjective - Date & Time of Evaluation Date of Evaluation: 11/27/18 Time of Evaluation: 02:02 - Subjective Subjective: Patient was seen at bedside for complaint of headache. Denies nausea, dizziness, paraestehsia, localized weakness. States that she has been coughing and has headache because of that. States that lately she has been having headaches and has been receiving fioricet which helps her. Medical record was reviewed. This 54 year old woman was admitted with increasing cough, congestion and sob. Has PMH of bronchial asthma, tuberculosis, GERD, cholecystectomy, gastric bypass surgery, left total knee replacement. Objective - Vital Signs/Intake and Output Vital Signs (last 24 hours): Temp Pulse Resp BP Pulse Ox 98.2 F 114 H 20 126/58 L 98 11/26/18 21:45 11/26/18 21:45 11/26/18 21:45 11/26/18 21:45 11/26/18 21:45 - Medications Medications: Current Medications Albuterol/Ipratropium (Duoneb 3 Mg/0.5 Mg (3 Ml) Ud) 3 ml IH Q2H PRN PRN Reason: Shortness of Breath Last Admin: 11/27/18 01:25 Dose: 3 ml Albuterol/Ipratropium (Duoneb 3 Mg/0.5 Mg (3 Ml) Ud) 3 ml IH [id number] [facility] Last Admin: 11/27/18 01:47 Dose: Not Given Gabapentin (Neurontin) 300 mg PO TID [facility]; Protocol Last Admin: 11/26/18 18:31 Dose: 300 mg Levofloxacin/Dextrose (Levaquin 500mg) 500 mg in 100 mls @ 100 mls/hr IVPB DAILY [facility]; Protocol Last Admin: 11/26/18 18:26 Dose: 100 mls/hr Insulin Human Lispro (Humalog High) 0 units SC ACHS [facility]; Protocol Last Admin: 11/26/18 21:29 Dose: Not Given Methylprednisolone (Solu-Medrol) 40 mg IV Q12 [facility] Last Admin: 11/26/18 21:35 Dose: 40 mg Pantoprazole Sodium (Protonix Ec Tab) 40 mg PO 0630 [facility] - Labs Labs: 11/26/18 14:50 11/26/18 14:50 - Constitutional Appears: Well, No Acute Distress - Head Exam Head Exam: ATRAUMATIC, NORMAL INSPECTION, NORMOCEPHALIC - Eye Exam Eye Exam: Normal appearance - ENT Exam ENT Exam: Normal External Ear Exam - Neck Exam Neck Exam: Normal Inspection - Respiratory Exam Respiratory Exam: NORMAL BREATHING PATTERN - Cardiovascular Exam Cardiovascular Exam: absent: JVD - GI/Abdominal Exam GI & Abdominal Exam: absent: Distended - Rectal Exam Rectal Exam: Deferred - Exam Additional comments: Deferred. - Extremities Exam Extremities Exam: Normal Inspection - Back Exam Back Exam: NORMAL INSPECTION - Neurological Exam Neurological Exam: Alert, Awake, Oriented x3 - Psychiatric Exam Psychiatric exam: Normal Affect, Normal Mood - Skin Skin Exam: Normal Color Assessment and Plan - Assessment and Plan (Free Text) Assessment: Headache secondary to cough. Bronchial asthma. URI. Obesity. Plan: Fiorice i PO X 1. Continue present management.
[2018-11-27] MEDS: Pantoprazole 40 mg EC Tab PO SCH (05:36)
[2018-11-27] MEDS: Insulin Lispro (HUMAlog) HIGH Coverage SC SCH ×3 (08:59→16:51)
[2018-11-27] MEDS: levoFLOXacin 500 mg in D5W 500 MG/100 ML BAG IVPB SCH (09:03)
[2018-11-27] MEDS: MethylPREDNISolone 40 mg Vial IV SCH ×3 (09:04→21:19)
[2018-11-27] MEDS: Levalbuterol 1.25 MG/3 ML Inhal Soln UD IH PRN (12:38)
[2018-11-27] MEDS: Levalbuterol 1.25 MG/3 ML Inhal Soln UD IH SCH ×2 (13:33→20:18)
[2018-11-27] MEDS: Apap-Butalbital-Caffeine 325-50-40mg Tab PO PRN (14:23)
--- NOTE | 2018-11-27 15:38 | PN ---
DATE: 11/27/2018 SUBJECTIVE: The patient is 58 years old, seen and examined. She is comfortable as compared to yesterday with severe short of breath on walking. No nausea or vomiting. Eating and tolerating. Today, the patient complained of feeling insomnia. Last night, she could not sleep well, requesting her sleeping pills. She also complained of headache. PHYSICAL EXAMINATION: VITAL SIGNS: She is afebrile, pulse 97, respiration 18, and blood pressure 149/76. LUNGS: Bilateral fair airflow. Few expiratory rhonchi. HEART: S1 and S2 audible. ABDOMEN: Soft, obese, and nontender. No rebound, no guarding. NEUROLOGIC: The patient is awake, alert, oriented, and communicative. ASSESSMENT: 1. Bronchial asthma. 2. Asthma exacerbation. 3. Headache. 4. Non-insulin dependent diabetes. 5. Obesity. PLAN: Currently, I will start the patient on zolpidem. Continue nebulizer treatment, also give her Fioricet as needed. She is on IV Levaquin. We will continue her on IV steroid. The patient seem to be tachycardic, we will switch her DuoNeb to Xopenex. We will reevaluate in the a.m. If the patient continue to improve, possible discharge in a.m. Hilda Rizvi MD
[2018-11-27] MEDS: POLYETHYLENE GLYCOL 3350 17 GM/Dose PACKET PO SCH (18:11)
[2018-11-28] MEDS: Apap-Butalbital-Caffeine 325-50-40mg Tab PO PRN (03:18)
[2018-11-28] MEDS: Levalbuterol 1.25 MG/3 ML Inhal Soln UD IH PRN (03:18)
[2018-11-28] MEDS: Insulin Lispro (HUMAlog) HIGH Coverage SC SCH ×2 (05:23→08:15)
[2018-11-28] MEDS: Pantoprazole 40 mg EC Tab PO SCH (05:30)
[2018-11-28] MEDS: Levalbuterol 1.25 MG/3 ML Inhal Soln UD IH SCH (07:23)
[2018-11-28 08:02] VITALS: BP 121/71; PULSE 90; RESP 20; TEMP 98; O2SAT 96
[2018-11-28] MEDS ORDERED: levoFLOXacin 500 MG TAB PO SCH (10:00)
[2018-11-28] MEDS: MethylPREDNISolone 40 mg Vial IV SCH (10:11)
[2018-11-28] MEDS: POLYETHYLENE GLYCOL 3350 17 GM/Dose PACKET PO SCH (10:22)
--- NOTE | 2018-11-28 22:59 | DS ---
DISCHARGE SUMMARY: The patient is 58 years old, came in to emergency room because of increasing cough, congestion, chest tightness, wheezing. The patient was admitted because she was getting exertional dyspnea. No fever or chills. Does have cough and congestion. The patient was given IV steroid, nebulizer treatments with significant relief. Today, this morning she is doing much better and anxious to go home. PHYSICAL EXAMINATION: GENERAL: She is awake, alert, oriented and communicative. VITAL SIGNS: She is afebrile, pulse 90, respiration 20, and blood pressure 121/71. LUNGS: Bilateral fair airflow. Occasional expiratory rhonchi. HEART: S1 and S2 audible. ABDOMEN: Soft and nontender. No rebound, no guarding. NEUROLOGIC: The patient is awake, alert, oriented, communicative, and ambulatory. LABORATORY DATA: Blood sugar is 205. ASSESSMENT AND PLAN: 1. Asthma exacerbation. 2. Severe bronchospasm. 3. Hypertension. 4. Hyperlipidemia. 5. [id number] diabetes. DISCHARGE PLAN: So, plan is patient is being discharged home on Levaquin 500 mg daily for four more days, prednisone 20 mg daily for 5 days and Singulair 10 mg daily. She will follow with her allergies. She will resume her usual medication including metformin and her nebulizer. Hilda Rizvi MD
== END 2018-11-28 12:02 | disposition home or self-care (01) ==
LOC: ED 11:58 → ERH 14:13 → 5RNO 18:07
PROVIDERS: ADMIT Internal Medicine; ATTEND Internal Medicine
DX: J45.901 Unspecified asthma with (acute) exacerbation (principal); E11.9 Type 2 diabetes mellitus without complications; J06.9 Acute upper respiratory infection, unspecified; I10 Essential (primary) hypertension; E78.5 Hyperlipidemia, unspecified; K21.9 Gastro-esophageal reflux disease without esophagitis; E66.9 Obesity, unspecified; Z68.41 Body mass index [BMI] 40.0-44.9, adult; Z79.84 Long term (current) use of oral hypoglycemic drugs; Z79.83 Long term (current) use of bisphosphonates; Z86.11 Personal history of tuberculosis; Z87.891 Personal history of nicotine dependence; Z98.84 Bariatric surgery status; Z96.653 Presence of artificial knee joint, bilateral; Z88.5 Allergy status to narcotic agent
CPT/HCPCS: 71045; 80053; 82948; 85025; 93005; 94150; 94640; 94760; 96365; 96375; 96376; 99284; G0378; J2920